=== PATIENT | female | born 2000 | race Caucasian/White ===

== ENCOUNTER 2020-06-27 13:34 | Emergency (ER) | payer MEDICAID ==
[~2020-06-27] VITALS: Ht 167.6 cm; Wt 68.0 kg
[2020-06-27] MEDS ORDERED: ALBU8.5H8 INH (14:25)
--- NOTE | 2020-06-27 14:30 | NUR ---
Patient discharged to home in stable condition. Written and verbal after care instructions given. Patient verbalizes understanding of instructions. Stressed follow up or return to ER for worsening s/s.
== END 2020-06-27 14:56 | disposition home or self-care (01) ==
LOC: ER 13:34
DX: R06.02 Shortness of breath (principal); Z82.5 Family history of asthma and other chronic lower respiratory diseases; R00.1 Bradycardia, unspecified
CPT/HCPCS: 71045; 93005; A4663

== ENCOUNTER 2020-07-16 14:53 | Emergency (ER) | payer MEDICAID ==
[~2020-07-16] VITALS: Ht 167.6 cm; Wt 68.0 kg
[~2020-07-16 14:53] MED LIST: ALBU8.5H8 INH
--- NOTE | 2020-07-16 15:14 | NUR ---
PT IS IN ROOM #2A. DR MCCLAIN EVALUATED THE PT.
[2020-07-16] MEDS ORDERED: PHENAZOPYRIDINE HCL 100 MG TABLET PO ONE (15:15)
[2020-07-16] MEDS ORDERED: PHENAZOPYRIDINE HCL 100 MG TABLET ONE (15:19)
[2020-07-16 15:27] LABS: *BILIRUBIN,URIN NEGATIVE (NEGATIVE); *BLOOD, URINE 3+ (NEGATIVE); *CLARITY,URINE SLIGHTLY CLOUDY (CLEAR); *COLOR,URINE YELLOW (YELLOW); *KETONES,URINE NEGATIVE (NEGATIVE); *UROBILINOGEN,URINE 0.2 E.U./dl (NORMAL); LEUKOCYTE ESTERASE ,URINE 1+ (NEGATIVE); NITRITE, URINE NEGATIVE (NEGATIVE); PH,URINE 5.5 (5.0-8.0); UGLUCOSE NEGATIVE (NEGATIVE)
[2020-07-16 15:29] LABS: *URINE HCG, QUAL NEGATIVE (NEGATIVE)
[2020-07-16 15:37] LABS: RBC,URINE 20-50 /HPF (0-3)
[2020-07-16 15:38] LABS: BACTERIA,URINE FEW /HPF (NONE SEEN); SQUAMOUS EPITHELIAL CELL,UR MODERATE /HPF (NONE SEEN)
[2020-07-16] MEDS ORDERED: PHEN-894 PO (15:46)
[2020-07-16] MEDS ORDERED: CEPH250C PO (15:46)
--- NOTE | 2020-07-16 15:53 | NUR ---
PT WAS D/C'd TO HOME. D/C INSTRUCTIONS GIVEN TO THE PT BY DR MCCLAIN.
[2020-07-16 15:55] VITALS: BP 124/69
== END 2020-07-16 15:56 | disposition home or self-care (01) ==
LOC: ER 14:55
DX: R30.0 Dysuria (principal); R31.29 Other microscopic hematuria; J45.909 Unspecified asthma, uncomplicated
CPT/HCPCS: 84703; 87086; A4663

== ENCOUNTER 2020-07-20 14:05 | Emergency (ER) | payer MEDICAID ==
[~2020-07-20] VITALS: Ht 167.6 cm; Wt 68.0 kg
[~2020-07-20 14:05] MED LIST changes: +CEPH250C PO; +PHEN-894 PO
--- NOTE | 2020-07-20 14:10 | NUR ---
at bedside for MSE at this time.
[2020-07-20] MEDS: CEFTRIAXONE 1 G VIAL IM ONE (14:23)
[2020-07-20] MEDS ORDERED: LIDOCAINE HCL 1% 20 ML VIAL ONE (14:23)
[2020-07-20] MEDS ORDERED: CEFTRIAXONE 1 G VIAL ONE (14:23)
--- NOTE | 2020-07-20 14:23 | NUR ---
PT. REFUSED MEDICATION. DISCUSSED WITH MD BENEFITS OF MEDICATION AND RISK OF REFUSAL. PATIENT REMAINS ADAMANT. Addendum: 07/20/20 at 1427 by BERTA Medication wasted and disposed at proper receptacle
--- NOTE | 2020-07-20 14:24 | NUR ---
Patient discharged to home in stable condition, ambulated with steady gait. Written and verbal after care instructions given. Patient verbalizes understanding of instructions. Stressed follow up or return to ER for worsening s/s.
[2020-07-20 14:25] VITALS: BP 116/67
== END 2020-07-20 14:28 | disposition home or self-care (01) ==
LOC: ER 14:05
DX: K04.7 Periapical abscess without sinus (principal); J45.909 Unspecified asthma, uncomplicated
CPT/HCPCS: A4663; J0696; J3490

== ENCOUNTER 2020-07-28 23:43 | Emergency (ER) | payer MEDICAID ==
[~2020-07-28] VITALS: Ht 167.6 cm; Wt 68.0 kg
--- NOTE | 2020-07-28 23:54 | NUR ---
Dr. Johnson at bedside to do MSE.
--- NOTE | 2020-07-29 00:05 | NUR ---
Pt. arrived from home c/o headache starting 2 weeks ago. Denies vision changes, dizziness, or changes in speech. Pt. reports she was here on 07/20/20 for a toothache. She states she had the tooth removed 1 week ago. Pt. states she does not want any medication for her pain, and that it feels like intermittent shooting in the side/back of her head, and she is not able to rate it on the pain scale.
--- NOTE | 2020-07-29 00:08 | NUR ---
Pt. taken to CT
--- NOTE | 2020-07-29 00:14 | NUR ---
Pt. returned from CT.
[2020-07-29 00:19] LABS: *URINE HCG, QUAL NEG (NEGATIVE)
--- NOTE | 2020-07-29 00:40 | NUR ---
Patient discharged to home in stable condition. Written and verbal after care instructions given. Patient verbalizes understanding of instructions. Stressed follow up or return to ER for worsening s/s. All belongings with pt.
[2020-07-29 00:50] VITALS: BP 118/76
== END 2020-07-29 00:40 | disposition home or self-care (01) ==
LOC: ER 23:43
DX: R51.9 Headache, unspecified (principal)
CPT/HCPCS: 70450; 84703; A4663

== ENCOUNTER 2020-09-07 19:48 | Emergency (ER) | payer MEDICAID ==
[~2020-09-07] VITALS: Ht 167.6 cm; Wt 65.8 kg
--- NOTE | 2020-09-07 20:08 | NUR ---
pt ambulated to ER with c/o sore throat and dental pain (lower/mid jaw) x [address]:06/03. A/O x4, no SOB or labored breathing afebrile. Denies CP/pressure. Denies any GI/ distress.
--- NOTE | 2020-09-07 20:30 | NUR ---
Dr. Ayon at bedside, MSE in progress.
[2020-09-07 21:01] LABS: HEMATOCRIT 37.5 % (31.2-41.9); MEAN CORPUSCULAR HEMOGLOBIN 28.6 uug (24.7-32.8); MEAN CORPUSCULAR VOLUME 86.5 fL (75.5-95.3); PLATELET COUNT (AUTO) 223 K/uL (179-408)
--- NOTE | 2020-09-07 21:10 | NUR ---
Pt asked twice to lower music on her phone, still noted to be non-compliant.
[2020-09-07 21:17] LABS: *MONOTEST POSITIVE (NEGATIVE)
[2020-09-07] MEDS ORDERED: OXYC-128 PO (22:13)
--- NOTE | 2020-09-07 22:17 | NUR ---
Patient discharged to home in stable condition. A/O x4, no SOB or labored breathing. Denies any pain/discomfort at this time. Written and verbal after care instructions given. Patient verbalizes understanding of instructions. Stressed follow up or return to ER for worsening s/s. Steady gait.
[2020-09-07 22:19] VITALS: BP 117/83
== END 2020-09-07 22:19 | disposition home or self-care (01) ==
LOC: ER 19:53
DX: B27.90 Infectious mononucleosis, unspecified without complication (principal); J03.90 Acute tonsillitis, unspecified
CPT/HCPCS: 36415; 85025; 86308; 86403; 87070; A4663

== ENCOUNTER 2020-09-26 20:53 | Emergency (ER) | payer MEDICAID ==
[~2020-09-26] VITALS: Ht 167.6 cm; Wt 65.8 kg
[~2020-09-26 20:53] MED LIST changes: +OXYC-128 PO
--- NOTE | 2020-09-26 23:45 | NUR ---
Patient walked into ER A/Ox3 with steady gait c/o head injury. Patient states 3hrs ago she trip and hit her head on coffee table. Denies trauma to abdominal area. Denies abdominal pain. No N/V. Denies LOC.
[2020-09-27 00:32] VITALS: BP 125/66
== END 2020-09-27 00:32 | disposition home or self-care (01) ==
LOC: ER 20:54
DX: O9A.211 Injury, poisoning and certain other consequences of external causes complicating pregnancy, first trimester (principal); S00.03XA Contusion of scalp, initial encounter; W01.190A Fall on same level from slipping, tripping and stumbling with subsequent striking against furniture, initial encounter; Y92.89 Other specified places as the place of occurrence of the external cause; Z3A.01 Less than 8 weeks gestation of pregnancy
CPT/HCPCS: A4663

== ENCOUNTER 2020-10-06 13:37 | Emergency (ER) | payer MEDICAID ==
[~2020-10-06] VITALS: Ht 167.6 cm; Wt 67.1 kg
--- NOTE | 2020-10-06 14:15 | NUR ---
at bedside for MSE at this time
--- NOTE | 2020-10-06 14:17 | NUR ---
dental laboratory technician apprentice in room for lab draw
[2020-10-06 14:30] LABS: HEMATOCRIT 35.9 % (31.2-41.9); MEAN CORPUSCULAR HEMOGLOBIN 30.3 uug (24.7-32.8); MEAN CORPUSCULAR VOLUME 88.8 fL (75.5-95.3); PLATELET COUNT (AUTO) 202 K/uL (179-408)
[2020-10-06 14:31] LABS: CREATININE 0.7 mg/dL (0.6-1.3); POTASSIUM 3.7 mmol/L (3.5-5.1)
[2020-10-06] MEDS ORDERED: FAMO-132 PO (14:44)
--- NOTE | 2020-10-06 14:53 | NUR ---
Patient discharged to home in stable condition, ambulate with steady gait. No s/s of distress or SOB noted. Written and verbal after care instructions given. Prescription given to patient. Patient verbalizes understanding of instructions. Stressed follow up or return to ER for worsening s/s.
[2020-10-06 14:54] VITALS: BP 124/68
== END 2020-10-06 14:55 | disposition home or self-care (01) ==
LOC: ER 13:37
DX: R07.9 Chest pain, unspecified (principal); R94.31 Abnormal electrocardiogram [ECG] [EKG]
CPT/HCPCS: 36415; 70030-TC; 71045; 85025; 93005; A4663

== ENCOUNTER 2020-10-22 14:45 | Emergency (ER) | payer MEDICAID ==
[~2020-10-22] VITALS: Ht 167.6 cm; Wt 68.0 kg
[~2020-10-22 14:45] MED LIST changes: +FAMO-132 PO
[2020-10-22] MEDS ORDERED: PENI500T PO (15:22)
[2020-10-22] MEDS ORDERED: HYDR-4209 PO (15:22)
[2020-10-22 15:40] VITALS: BP 122/72
--- NOTE | 2020-10-22 15:40 | NUR ---
PT SEEN AND EVALUATED BY DR GÓMEZ. DISCHARGE INSTRUCTION AND PRESCRIPTION RENDERED BY .
== END 2020-10-22 15:41 | disposition home or self-care (01) ==
LOC: ER 14:45
DX: K02.9 Dental caries, unspecified (principal); Z86.19 Personal history of other infectious and parasitic diseases
CPT/HCPCS: A4663

== ENCOUNTER 2020-11-14 21:48 | Emergency (ER) | payer BC, OTHER ==
[~2020-11-14] VITALS: Ht 167.6 cm; Wt 63.5 kg
[~2020-11-14 21:48] MED LIST changes: +HYDR-4209 PO; +PENI500T PO
--- NOTE | 2020-11-14 23:33 | NUR ---
Nikkie perry into do procedure.
--- NOTE | 2020-11-15 00:05 | NUR ---
CHAPERONED DR. ABRAMS FOR IUD REMOVAL.
[2020-11-15 00:14] VITALS: BP 130/74
== END 2020-11-15 00:14 | disposition home or self-care (01) ==
LOC: ER 21:48
DX: T83.32XA Displacement of intrauterine contraceptive device, initial encounter (principal); R07.9 Chest pain, unspecified; I45.10 Unspecified right bundle-branch block
CPT/HCPCS: 93005

== ENCOUNTER 2020-12-16 17:06 | Emergency (ER) | payer BC, OTHER ==
[~2020-12-16] VITALS: Ht 167.6 cm; Wt 63.5 kg
--- NOTE | 2020-12-16 17:39 | NUR ---
at bedside for assessment
[2020-12-16] MEDS ORDERED: CLIN300C12 PO (19:06)
[2020-12-16] MEDS ORDERED: OXYC-128 PO (19:06)
--- NOTE | 2020-12-16 19:10 | NUR ---
Patient discharged to home in stable condition. Written and verbal after care instructions given. Patient verbalizes understanding of instructions. Stressed follow up or return to ER for worsening s/s. Patient out of ER with steady gait, no acute signs of distress, VSS, all belongings taken.
[2020-12-16 19:11] VITALS: BP 147/81
== END 2020-12-16 19:11 | disposition home or self-care (01) ==
LOC: ER 17:08
DX: R51.9 Headache, unspecified (principal); K08.9 Disorder of teeth and supporting structures, unspecified; Z88.8 Allergy status to other drugs, medicaments and biological substances
CPT/HCPCS: 70450; A4663

== ENCOUNTER 2021-01-21 20:20 | Emergency (ER) | payer BC, OTHER ==
[~2021-01-21] VITALS: Ht 167.6 cm; Wt 71.7 kg
[~2021-01-21 20:20] MED LIST changes: +CLIN300C12 PO
[2021-01-21] MEDS ORDERED: IV NORMAL SALINE 1000 ML BAG IV ONE (20:45)
[2021-01-21] MEDS ORDERED: ACETAMINOPHEN ES 500 MG TABLET PO ONE (20:45)
[2021-01-21] MEDS ORDERED: METOCLOPRAMIDE HCL 10 MG/2 ML VIAL IV ONE (20:45)
[2021-01-21 21:04] LABS: HEMATOCRIT 40.6 % (31.2-41.9); MEAN CORPUSCULAR HEMOGLOBIN 30.1 uug (24.7-32.8); MEAN CORPUSCULAR VOLUME 89.1 fL (75.5-95.3); PLATELET COUNT (AUTO) 252 K/uL (179-408)
[2021-01-21 21:13] LABS: CARBON DIOXIDE 31 mmol/L (21-32); CHLORIDE 104 mmol/L (98-107); CREATININE 0.9 mg/dL (0.6-1.3); GLUCOSE 95 mg/dL (74-106); POTASSIUM 4.3 mmol/L (3.5-5.1); UREA NITROGEN, BLOOD 7 mg/dL (7-18)
[2021-01-21 21:19] LABS: ALANINE AMINOTRANSFERASE 62 U/L (14-59); ALKALINE PHOSPHATASE 93 U/L (50-136); ASPARTATE AMINOTRANSFERASE 44 U/L (15-37); BILIRUBIN,DIRECT 0.1 mg/dL (0.0-0.2); BILIRUBIN,TOTAL 0.4 mg/dL (0.2-1.0); LIPASE 148 U/L (73-393)
[2021-01-21] MEDS ORDERED: CEFTRIAXONE 1 G VIAL ONE (21:34)
[2021-01-21] MEDS ORDERED: ACETAMINOPHEN ES 500 MG TABLET ONE (21:55)
[2021-01-21] MEDS ORDERED: IBUP-1957 PO (22:07)
--- NOTE | 2021-01-21 22:19 | NUR ---
Patient discharged to home in stable condition. Written and verbal after care instructions given. Patient verbalizes understanding of instructions. Stressed follow up or return to ER for worsening s/s. Patient out of ER with steady gait, no acute signs of distress, VSS, all belongings taken, IV site discontinued, provided with copies of lab and CT results.
[2021-01-21 22:20] VITALS: BP 127/82
== END 2021-01-21 22:20 | disposition home or self-care (01) ==
LOC: ER 20:25
DX: R51.9 Headache, unspecified (principal); R79.89 Other specified abnormal findings of blood chemistry
CPT/HCPCS: 36415; 70450; 83690; 85025; A4663; A9150; J0696; J7030

== ENCOUNTER 2021-03-25 01:33 | Emergency (ER) | payer BC, MEDICAID, OTHER ==
[~2021-03-25] VITALS: Ht 172.7 cm; Wt 63.5 kg
[~2021-03-25 01:33] MED LIST changes: +IBUP-1957 PO
--- NOTE | 2021-03-25 01:42 | NUR ---
pt ambluated to room 5. pt c/o nausea and ETOH.
[2021-03-25] MEDS ORDERED: IV NS 1000 ML 1,000 ML IV ONE ×2 (02:00→03:15)
[2021-03-25] MEDS ORDERED: PROCHLORPERAZINE EDISYLATE 10 MG/2 ML VIAL IV ONE (02:00)
[2021-03-25 02:02] LABS: *BILIRUBIN,URIN NEGATIVE (NEGATIVE); *BLOOD, URINE NEGATIVE (NEGATIVE); *COLOR,URINE YELLOW (YELLOW); *KETONES,URINE NEGATIVE (NEGATIVE); *UROBILINOGEN,URINE 0.2 E.U./dl (NORMAL); LEUKOCYTE ESTERASE ,URINE 2+ (NEGATIVE); NITRITE, URINE NEGATIVE (NEGATIVE); UGLUCOSE NEGATIVE (NEGATIVE)
[2021-03-25 02:07] LABS: *CLARITY,URINE HAZY (CLEAR)
[2021-03-25 02:11] LABS: BACTERIA,URINE FEW /HPF (NONE SEEN); SQUAMOUS EPITHELIAL CELL,UR MODERATE /HPF (NONE SEEN)
[2021-03-25] MEDS ORDERED: ONDANSETRON 4 MG/2 ML VIAL IV ONE (02:15)
[2021-03-25] MEDS ORDERED: ONDANSETRON 4 MG/2 ML VIAL ONE (02:16)
[2021-03-25] MEDS ORDERED: ONDA4TAB5 GT (03:29)
--- NOTE | 2021-03-25 03:47 | NUR ---
Patient discharged to home in stable condition. Written and verbal after care instructions given. Patient verbalizes understanding of instructions. Stressed follow up or return to ER for worsening s/s. pt ambulated with steady gait. pt a/o, clear speech, able to speak complete sentences. pt's boyfriend Juan took pt home.
[2021-03-25 03:48] VITALS: BP 135/72
== END 2021-03-25 03:49 | disposition home or self-care (01) ==
LOC: ER 01:34
DX: R11.2 Nausea with vomiting, unspecified (principal); Z88.8 Allergy status to other drugs, medicaments and biological substances; Z79.1 Long term (current) use of non-steroidal anti-inflammatories (NSAID); Z79.2 Long term (current) use of antibiotics; Z79.899 Other long term (current) drug therapy
CPT/HCPCS: 81001; 87086; 96361; 96374; 99283; J2405; A4663; J7030

== ENCOUNTER 2022-07-14 14:30 | Emergency (ER) | payer BC, MEDICAID, OTHER ==
[~2022-07-14] VITALS: Ht 167.6 cm; Wt 77.1 kg
[~2022-07-14 14:30] MED LIST changes: +ONDA4TAB5 GT
[2022-07-14] MEDS ORDERED: TRAM50TA2 PO (14:51)
[2022-07-14] MEDS ORDERED: PENI500T PO (14:51)
--- NOTE | 2022-07-14 14:51 | NUR ---
Pt seen by MD for bedside eval. Safety measures in place. Will continue to monitor.
[2022-07-14 15:05] VITALS: BP 139/75
== END 2022-07-14 15:38 | disposition home or self-care (01) ==
LOC: ER 14:39
DX: K08.89 Other specified disorders of teeth and supporting structures (principal); Z88.8 Allergy status to other drugs, medicaments and biological substances; Z79.1 Long term (current) use of non-steroidal anti-inflammatories (NSAID); Z79.2 Long term (current) use of antibiotics; Z79.899 Other long term (current) drug therapy
CPT/HCPCS: A4663